=== PATIENT | female | born 1975 | race Caucasian/White ===

== ENCOUNTER 2019-07-03 17:22 | Observation (INO) ==
[2019-07-03 18:30] LABS: BASO# 0.06 X1000 (0.0-0.2); BASO% 0.6 % (0.0-0.8); EOS# 0.18 X1000 (0.0-0.7); EOS% 1.9 % (0.0-10.0); HEMATOCRIT 29.7 % (37.0-47.0); HEMOGLOBIN 9.9 g/dL (12.0-16.0); IMM GRAN# 0.02 X1000 (0.0-0.04); IMM GRAN% 0.2 % (0.0-0.5); LYMPH# 2.06 X1000 (1.2-3.4); LYMPH% 21.8 % (20.5-51.1); MCH 29.9 PG (27-31); MCHC 33.3 g/dL (33-37); MCV 89.7 FL (81-99); MONO# 0.58 X1000 (0.11-0.59); MONO% 6.1 % (1.7-9.3); MPV 9.8 FL (7.4-10.4); NEUT# 6.57 X1000 (1.4-6.5); NEUT% 69.4 % (42.2-75.2); PLT 201 X1000 (130-400); RBC 3.31 XMIL (4.2-5.4); WBC 9.47 X1000 (4.8-10.8)
[2019-07-03 18:55] LABS: ALB/GLOB RATIO 1.3; ALBUMIN 3.6 g/dL (3.5-5.0); CALCIUM 8.7 mg/dL (8.8-10.2); CREATININE 6.1 mg/dL (0.5-0.9); POTASSIUM 5.7 mmol/L (3.5-5.1); TOTAL BILIRUBIN 0.2 mg/dL (0.20-1.00); TOTAL PROTEIN 6.3 g/dL (6.3-8.3)
[2019-07-03 19:07] LABS: URINE SOURCE CLEAN CATCH
[2019-07-03 19:20] LABS: BILIRUBIN URINE NEGATIVE (NEGATIVE); BLOOD URINE SMALL (NEGATIVE); COLOR STRAW; GLUCOSE URINE NEGATIVE (NEGATIVE); KETONE URINE NEGATIVE (NEGATIVE); LEUKOCYTES URINE NEGATIVE (NEGATIVE); NITRITE URINE NEGATIVE (NEGATIVE); PROTEIN URINE 200 mg/dL (NEGATIVE); SP GRAVITY URINE 1.011; TURBIDITY URINE CLEAR (CLEAR); UROBILINOGEN URINE NORMAL (NORMAL)
[2019-07-03 19:21] LABS: UR EPITHELIAL CELLS <10 /HPF (<10); URINE BACTERIA NEGATIVE /HPF; URINE RBC <10 /HPF (<10); URINE WBC <10 /HPF (<10)
--- NOTE | 2019-07-03 19:25 | EKG Report ---
Test Performed on : 07/03/2019 6:22:07 PM Test Reason : abnormal labs Blood Pressure : / mmHG Vent. Rate : 078 BPM Atrial Rate : 078 BPM P-R Int : 154 ms QRS Dur : 080 ms QT Int : 408 ms P-R-T Axes : 064 026 031 degrees QTc Int : 465 ms Normal sinus rhythm. with sinus arrhythmia. Normal ECG No previous ECGs available Unconfirmed Result
[2019-07-03] MEDS ORDERED: TYLENOL PO ONE (19:43)
--- NOTE | 2019-07-03 20:35 | PROVIDER DOCUMENTATION ---
This chart was entered by Chyna Pete Scribe, acting as scribe for Indira Miles MD. HPI-General Adult - General Chief Complaint: Abnormal Lab[s] Stated Complaint: DR FATIMA REFERRED Time Seen by Provider: 07/03/19 19:00 Source: patient Allergies/Adverse Reactions: Patient Allergies Allergy/AdvReac Type Severity Reaction Status Date / Time ibuprofen Allergy SWELLING Verified 07/03/19 19:03 - History of Present Illness -Gen Adult Nature of Presenting Problems: Patient is a 43 y/o female presenting to the ED today c/o abnormal labs. Patient reports she went to [facility] today and was told her creatinine was critically elevated and was transferred to [facility] for admission. Due to miscommunication, patient was brought to the ER and Dr. Dodd requested admission through the ED. Patient is known to Dr. Dodd and patient states last week she was diagnosed with "kidney failure". Patient reports she initially went to the ER this morning due to headache. Patient reports history of hypertension but denies hyperlipidemia or diabetes. Patient reports she smokes approximately 1/2 pack daily and reports she has not used alcohol in 5 years. Patient denies all other signs/symptoms. Location of Pain/Injury: reports: none Associated Symptoms: reports: headaches Similar Symptoms Previously?: Yes Recently seen or treated by another doctor?: Yes (saw Dr. Dodd on 06/25) Review of Systems - Adult - REVIEW OF SYSTEMS - ADULT Constitutional: denies: chills, fever Eyes: reports: no symptoms reported Ears, Nose, Mouth & Throat: reports: no symptoms reported Cardiovascular: denies: chest pain Respiratory: denies: cough, shortness of breath Gastrointestinal: denies: abdominal pain, diarrhea, nausea, vomiting Genitourinary: denies: dysuria, frequency, flank pain Musculoskeletal: reports: no symptoms reported Integumentary: reports: no symptoms reported Neurological: reports: headache/migraines Psychiatric: reports: no symptoms reported Endocrine: reports: no symptoms reported Hematologic/Lymphatic: reports: no symptoms reported Allergic/Immunologic: reports: no symptoms reported All Other Systems: Reviewed and Negative Past History - Adult - PAST MEDICAL HISTORY-ADULT Review of Records: reports: Old Records Reviewed, Nursing Assessment Review, Medications Reviewed, Social history reviewed & non-contributory. Major Childhood Illnesses: reports: denies history Cardiovascular: reports: HTN Respiratory: reports: denies history Gastrointestinal: reports: denies history Obstetrical/Gynecological: reports: denies history Genitourinary: reports: other ("kidney failure") Musculoskeletal: reports: denies history Neurological: reports: denies history Psychiatric: reports: denies history Endocrine/Immune: reports: denies history Other Conditions: reports: denies history Physical Exam-General - PHYSICAL EXAM-ADULT Initial Vital Signs Reviewed: Yes - CONSTITUTIONAL General Appearance: appears well, alert, no apparent distress - EYES Eyes: PERRL/EOMI, pink conjunctivae - HEAD, EARS, NOSE, MOUTH & THROAT HENMT: normocephalic/atraumatic, moist mucous membranes - NECK Neck: full range of motion, normal inspection - RESPIRATORY Respiratory: lungs clear, normal breath sounds, no respiratory distress, no accessory muscle use - CARDIOVASCULAR Cardiovascular: regular rate, rhythm, no edema - GASTROINTESTINAL (ABDOMEN) Abdominal Exam: non tender, soft - LYMPHATIC Lymphatic: no adenopathy - MUSCULOSKELETAL Back Exam: normal inspection Extremity: normal range of motion, normal gait, normal inspection, no pedal edema - SKIN Integumentary: normal color, normal turgor, warm/dry - NEUROLOGIC Neurologic: grossly normal, no motor/sensory deficits - PSYCHIATRIC Psych/Mental Status: normal mood/affect, normal thought content, normal thought process Progress - PLAN OF CARE/RESULTS Progress/Plan/Lab Results: Vital Signs - 8 hr 07/03/19 17:25 Temperature 98.4 F Pulse Rate 96 H Respiratory Rate 16 Blood Pressure 203/115 O2 Sat by Pulse Oximetry 100 Laboratory Results - last 24 hr 07/03/19 07/03/19 07/03/19 17:59 17:59 18:50 WBC 9.47 RBC 3.31 L Hgb 9.9 L Hct 29.7 L MCV 89.7 MCH 29.9 MCHC 33.3 RDW Std Deviation 13.0 Plt Count 201 MPV 9.8 Immature Gran % (Auto) 0.2 Neut % (Auto) 69.4 Lymph % (Auto) 21.8 Butler % (Auto) 6.1 Eos % (Auto) 1.9 Baso % (Auto) 0.6 Immature Gran # (Auto) 0.02 Neut # (Auto) 6.57 H Lymph # (Auto) 2.06 Butler # (Auto) 0.58 Eos # (Auto) 0.18 Baso # (Auto) 0.06 Sodium 138 Potassium 5.7 H Chloride 107 Carbon Dioxide 13 L Anion Gap 18 BUN 72 H Creatinine 6.1 H Estimated GFR/1.73 m2 8 BUN/Creatinine Ratio 12 Glucose 96 Calculated Osmolality 297 Calcium 8.7 L Total Bilirubin 0.20 AST 15 ALT 12 Alkaline Phosphatase 53 Total Protein 6.3 Albumin 3.6 Globulin 2.7 Albumin/Globulin Ratio 1.3 Urine Source CLEAN CATCH Urine Color STRAW Urine Turbidity CLEAR Urine pH 6.0 Ur Specific [place] 1.011 Urine Protein 200 A Ur Glucose (Stick) NEGATIVE Ur Ketones (Stick) NEGATIVE Urine Blood SMALL A Urine Nitrite NEGATIVE Urine Bilirubin NEGATIVE Urobilinogen Dipstick NORMAL Urine Leukocytes NEGATIVE Urine WBC (Auto) <10 Urine RBC (Auto) <10 U Epithel Cells (Auto) <10 Urine Bacteria (Auto) NEGATIVE Orders Category Date Time Status CBC WITH ELECTRONIC DIFF [HEME] Stat Lab 07/03/19 17:59 Completed COMPREHENSIVE METABOLIC PANEL [CHEM] Stat Lab 07/03/19 17:59 Completed URINALYSIS [URINALYSIS] Stat Lab 07/03/19 18:50 Completed Generalized Adult Illness >60 Stat Oth 07/03/19 18:17 Ordered EKG [EKG] Stat Ther 07/03/19 18:18 Draft Result Diagrams: 07/03/19 17:59 07/03/19 17:59 - EKG 1 Time of EKG reading by physician:: 18:42 EKG Read and Signed by:: Luis Alberto Ruiz EKG Interpretation (*Must complete 3 of following elements*): Normal Rate: 78 Rhythm: Normal sinus rhythm with sinus arrhythmia [place]: normal QRS: normal VA Interval: normal ST Wave: normal - CONSULTS/PCP/HOSPITALIST Notification #1 *Consult/PCP/Hospitalist*: [place] Time Discussed: 20:35 Consult Disposition: Admit (accepts admission) Departure - Departure Date of Disposition Decision: 07/03/19 Time of Disposition Decision: 20:33 DIAGNOSIS: ESRD (end stage renal disease) Disposition: ADMITTED INPATIENT 09 Certified Medical Emergency: Emergent Condition: Stable Referrals and Follow-Ups: Jonathan Fatima MD [Primary Care Provider] - - Critical Care Note This patient required my direct & personal management of CC.: No Attestation - Physician/ JAYASHREE Attestation Patient care was provided by Advanced Practice Provider:: No The physician spent face to face time with patient:: Yes Advanced Practice Provider documentation review:: Supervising physician onsite and consulted in the evaluation and care of this patient. The physician did have a face to face encounter with the patient. This chart was documented by the indicated scribe, (Chyna Pete Scribe) and accurately reflects the services I performed and decisions made by me, Indira Miles MD, as attested by the provider's signature.
[2019-07-03] MEDS ORDERED: CATAPRES PO SCH (21:00)
[2019-07-03] MEDS ORDERED: ZOFRAN IV ONE (21:08)
[2019-07-03] MEDS ORDERED: FIORICET PO ONE (21:08)
[2019-07-03] MEDS ORDERED: NORVASC PO SCH (21:15)
[2019-07-03] MEDS ORDERED: APRESOLINE PO SCH (21:15)
--- NOTE | 2019-07-03 21:56 | Diag Imaging Result Doc PS360 ---
EXAM: CT HEAD/C-SPINE W/O CONTRAST 07/03/2019 HISTORY: WEBSTER,Suboccipital C7 pain/tenderness TECHNIQUE: This exam was performed using automated exposure control, adjustment of mA or kV according to patient size, and/or use of iterative reconstruction technique. COMMENT: There is no evidence of mass effect, bleed, or abnormal extra-axial fluid collection. There is persistence the metopic suture. The visualized paranasal sinuses are clear. Cervical spine: There is no evidence of fracture, subluxation, or prevertebral soft tissue swelling. The facets are aligned. There is a small pleural-based nodule posteriorly in the left apex. IMPRESSION: No evidence of acute disease. Electronically signed by Bora Rodriguez 07/03/2019 9:53 PM
--- NOTE | 2019-07-03 21:58 | Diag Imaging Result Doc PS360 ---
EXAM: CT THORACIC SPINE W/O CONTRAST 07/03/2019 HISTORY: T3-T4 pain/tenderness TECHNIQUE: This exam was performed using automated exposure control, adjustment of mA or kV according to patient size, and/or use of iterative reconstruction technique. COMMENT: There are some degenerative disc changes with anterior osteophyte formation. There is no evidence of fracture or subluxation. There is no evidence of spinal stenosis. There is some slight curvature of the midthoracic spine with convexity to the right. There is ankylosis between the fifth and sixth ribs medially and posteriorly on the right. This is presumably congenital. IMPRESSION: No evidence of acute bony abnormality. Electronically signed by Bora Rodriguez 07/03/2019 9:56 PM
--- NOTE | 2019-07-03 22:37 | HISTORY AND PHYSICAL ---
ADDENDUM: Ms. Jeni Lopez was transferred from [facility] to our facility. She was admitted to [facility] a week ago for what she says was a low blood level with hemoglobin estimated about 7 g. She was given 2 units of blood. She states that since she received the blood products she has had an intractable headache with photophobia and phonophobia and some nausea. She says these symptoms are reminiscent of her migraines in the past. She denies any fever or chills. Says the headache she has starts occipital and radiates down to her mid spine. No neck stiffness. She denies any rash. She went to the ER today because of the headache. Her blood pressure was 200/105, but we noticed that her creatinine which runs a baseline of 5 was 6.1, called Dr. Hernandez, and she was supposed to be directly transmitted to our service but somehow ended up in the ER. PHYSICAL EXAMINATION: VITAL SIGNS: Blood pressure was 201/111, heart rate 75, she is afebrile, breathing at 18 per minute. GENERAL: She is a middle-aged woman, not in acute distress. Mildly pale. She has point tenderness in the suboccipital area, C7 vertebra and T4 vertebra of the spine. NECK: Supple. No JVD. CARDIOVASCULAR EXAM: Normal. NEUROLOGICAL EXAM: Normal. EYES: Pupils are equal and reactive to light. Extraocular muscles intact. Essentially rest of her exam is unremarkable. ASSESSMENT: This patient definitely has hypertensive kidney disease with an acute deterioration of her kidney function. She denies any NSAID use at this point in time. She did have antibiotic use a few weeks ago and hard to say this is playing a role. She did have some diarrhea after using antibiotics and was subsequently stopped. We will check urine eosinophils to rule out acute interstitial nephritis, although this is unlikely. Complements will also be drawn to rule out an immune etiology, although this seems somewhat unlikely. Renal ultrasound, urinalysis, amongst other things to be drawn. We will consult Dr. Hernandez to see patient. Avoid nephrotoxic medications. Start patient on Norvasc and hydralazine for better blood pressure control. Headache could represent a migraine, and we will give something that is not nephrotoxic nor may increase the risk of vascular vasospasm. The patient states that she was told she has had prior CVAs in the past. Recommend low dose baby aspirin. Check for statins. Check A1c. LDH, phosphorus levels, intact PTH will also be drawn. Anemia workup should be drawn. I do suspect this patient may be approaching the need for dialysis and maybe will benefit from having vascular surgeon due venous mapping at this point in time in anticipation for graft placement. cc: Curtis Cochran MD MTDD
[2019-07-04] MEDS ORDERED: NICODERM PATCH TD PRN (00:29)
[2019-07-04 00:57] LABS: ALB/GLOB RATIO 1.4; ALBUMIN 3.6 g/dL (3.5-5.0); CALCIUM 8.7 mg/dL (8.8-10.2); CREATININE 5.8 mg/dL (0.5-0.9); POTASSIUM 5.6 mmol/L (3.5-5.1); TOTAL BILIRUBIN 0.16 mg/dL (0.20-1.00); TOTAL PROTEIN 6.2 g/dL (6.3-8.3)
[2019-07-04] MEDS ORDERED: ZOFRAN IV PRN (04:15)
[2019-07-04] MEDS ORDERED: TYLENOL PO PRN (04:15)
[2019-07-04] MEDS ORDERED: APRESOLINE IV ONE (04:16)
[2019-07-04 06:02] LABS: BASO# 0.05 X1000 (0.0-0.2); BASO% 0.6 % (0.0-0.8); EOS# 0.23 X1000 (0.0-0.7); EOS% 2.9 % (0.0-10.0); HEMATOCRIT 25.3 % (37.0-47.0); HEMOGLOBIN 8.5 g/dL (12.0-16.0); LYMPH# 2.18 X1000 (1.2-3.4); LYMPH% 27.2 % (20.5-51.1); MCH 30.2 PG (27-31); MCHC 33.6 g/dL (33-37); MONO# 0.52 X1000 (0.11-0.59); MONO% 6.5 % (1.7-9.3); MPV 9.9 FL (7.4-10.4); NEUT# 5.04 X1000 (1.4-6.5); NEUT% 62.8 % (42.2-75.2); PLT 180 X1000 (130-400); RBC 2.81 XMIL (4.2-5.4); RDW 12.9 % (11.5-14.5); WBC 8.02 X1000 (4.8-10.8)
[2019-07-04 06:18] LABS: HEMOGLOBIN A1C 4.9 % (4.8-6.0); PHOSPHORUS 7.2 mg/dL (2.7-4.5)
[2019-07-04 06:42] LABS: FERRITIN 353 ng/mL (13-150)
[2019-07-04 07:18] LABS: ALB/GLOB RATIO 1.5; ALBUMIN 3.2 g/dL (3.5-5.0); CALCIUM 8.2 mg/dL (8.8-10.2); CREATININE 5.8 mg/dL (0.5-0.9); POTASSIUM 4.7 mmol/L (3.5-5.1); TOTAL BILIRUBIN 0.15 mg/dL (0.20-1.00); TOTAL PROTEIN 5.3 g/dL (6.3-8.3)
[2019-07-04] MEDS: APRESOLINE PO SCH ×2 (08:48→14:58)
[2019-07-04] MEDS ORDERED: NORVASC PO SCH (09:00)
[2019-07-04] MEDS ORDERED: CATAPRES PO SCH (09:00)
--- NOTE | 2019-07-04 09:31 | HISTORY AND PHYSICAL ---
PRIMARY CARE PROVIDER: Dr. Alli Barkley in [place]. HOOKER OPERATOR: Dr. Hernandez. DATE AND TIME: 07/03/2019 at 2050. CHIEF COMPLAINT: Headache and decreased renal function. HISTORY OF PRESENT ILLNESS: Ms Jeni Lopez is a 43-year-old female with a past medical history most notable for chronic kidney disease, hypertension, CVA, migraines, anxiety, and anemia. The patient states that approximately a week and half ago that she was admitted at [facility] in [place], [place] for treatment of anemia. She did receive a blood transfusion at that time and was subsequently discharged home. The patient states that since she had her blood transfusion, that she has had a persistent headache. She states she actually has felt worse since her blood transfusion than she did before she received blood. The patient did present back to the ER at [facility] today for further evaluation of her persistent headache. It was noted at this time that she also did have worsening renal function. She reportedly states thinks that her creatinine was previously 5, has now increased to 6.1. From what I understand, Dr. Hernandez was notified of this and did, I believe, mean for the patient to be a direct admission, though she did present to the ER for further evaluation at [facility]. The patient has reported chills but denies any fever or body aches. She is reporting a persistent headache for which she describes the pain does start in her mid thoracic area, comes up through the center of her back up through her neck and up over the top of her head and out through her frontal forehead area. She is reporting that she has intermittently had episodes where she sees spots or stars. She did have some tenderness and pain upon palpation in the suboccipital area, C7 area and T3 and T4 area. The patient denies any numbness or tingling. She denies any chest pain, shortness of breath though has reported recent sinus congestion, drainage and pressure. She also reports an occasional productive cough with whitish colored sputum. She denies any abdominal pain though has reported some nausea. She denies any vomiting. The patient states she recently did receive a prescription for cefprozil for treatment of sinusitis, though was told by either Dr. Hernandez or her primary care physician to stop taking this. The patient states that she did have a few episodes while she was taking this medication though once the medication was stopped, the diarrhea did subside and she has not had any further episodes. She denies any hematemesis, hematochezia or melena. She also denies any menorrhagia. She denies any pain, numbness tingling or swelling in extremities. She also denies any dysuria or decreased urinary output. Laboratory results of note upon evaluation in the ER was a hemoglobin of 9.9 and hematocrit of 29.7, though she reportedly had a hemoglobin of 7 previously, potassium 5.7, BUN 72, creatinine 6.1 with GFR of 8. Urinalysis did show positive for protein and small amount of blood though was otherwise negative. There were no signs of infection noted. We did perform a CT head and C-spine without contrast, as well as CT thoracic spine without contrast given her above reported symptoms, there were no acute abnormalities noted. She has been placed inpatient admission for further treatment and evaluation. PAST MEDICAL HISTORY: 1. Hypertension. 2. A CVA was reported with some reported residual speech and memory changes. 3. Chronic kidney disease. 4. Migraines. 5. Anxiety. 6. Anemia. PAST SURGICAL HISTORY: 1. Appendectomy. 2. Cholecystectomy. 3. section x2. 4. Facial bone reconstruction surgery related to an injury as a child. SOCIAL HISTORY: The patient is a half a pack per day smoker. She has smoked since age 17. The patient denies any current alcohol or illicit drug use, though she states she has not drank for a few years, though did have a period for 6 months where she did abuse alcohol daily, though she states this was after her had , though she does not use alcohol currently. FAMILY HISTORY: Positive for hypertension and kidney disease. ALLERGIES: The patient reports an anaphylactic allergy to ibuprofen, stating that she did take ibuprofen and did have angioedema with reported syncope and did end up having to receive treatment at a hospital. HOME MEDICATIONS: 1. Clonidine 0.1 mg p.o. b.i.d. 2. Lisinopril 20 mg p.o. b.i.d. LABORATORY AND DIAGNOSTIC DATA: 1. White blood cell count is 9470, hemoglobin 9.9, hematocrit 29.7, platelet count is 201,000. Sodium 138, potassium 5.7, chloride 107, serum bicarb 13, BUN 72, creatinine 6.1, GFR of 8, glucose 96, calcium 8.7. Liver function tests are within normal limits. Urinalysis was obtained via clean catch, was positive for protein and a small amount of blood though was negative for glucose, ketones, nitrites, bilirubin, leukocytes, white blood cells, or bacteria. 2. EKG showed normal sinus rhythm with sinus arrhythmia at a rate of 78 with a QTc of [address] head and C-spine without contrast showed no acute disease. This is per Radiology. 4. CT thoracic spine without contrast showed no evidence of acute bony abnormality. This is per Radiology as well. PENDING DIAGNOSTIC STUDIES: At this time are complement C3, C4 and complement total, haptoglobin, hemoglobin A1c, PTH intact, phosphorus, a lipid profile, anemia profile, sedimentation rate, CRP, LDH, and urine eosinophils. PHYSICAL EXAMINATION: VITAL SIGNS: The patient's blood pressure was initially elevated at 203/115 with a MAP of 144, though after receiving blood pressure medications of clonidine, hydralazine, and Norvasc orally, blood pressure has improved to 162/78 at this time. Temperature is 98 degrees, heart rate 70, respirations 20, and oxygen saturation is 99% on room air. GENERAL: Ms. Lopez is a pleasant 43-year-old female. She was resting on the ER stretcher. She was in no acute distress. She was awake, alert, and able to answer questions appropriately. HEENT: Head is atraumatic, normocephalic. Pupils are equal, round, reactive to light, were 3 mm bilaterally and brisk. Oral mucosa was moist. Oropharynx was clear. NECK: Supple. Trachea midline. No carotid bruits noted upon auscultation bilaterally. CARDIOVASCULAR: Patient has S1, S2 present. No murmurs, gallops, rubs appreciated with a regular rate and rhythm. PULMONARY: Patient has symmetrical chest expansion bilaterally. Lung sounds are clear to auscultation in bilateral full dominguez. ABDOMEN: Soft, nontender, nondistended. Bowel sounds were present in all 4 quadrants, were normoactive. EXTREMITIES: No cyanosis or edema noted. Pulse, motor, and sensory were intact in all extremities. Radial and pedal pulses are 2+ bilaterally. INTEGUMENTARY: Patient's skin is pink, warm, and dry. NEUROLOGICAL: Patient is alert and oriented to person, place, time, and situation. She is able to move all extremities. There are no focal neurological deficits noted. She does have equal hand grasps and muscle strength bilaterally. She denies any numbness or tingling. There was no facial droop or speech disturbances present. ASSESSMENT AND PLAN: 1. Acute on chronic kidney disease. The patient has had a recent increase in her creatinine from what we believe was previously and is now 6.1. Given the patient's acute deterioration in her kidney function as well as her other symptoms, we are going to rule out possible acute interstitial nephritis, possible immune etiology as well as delayed transfusion reaction. This also could be secondary to medication. The patient does take lisinopril as well as did recently receive antibiotic of cefprozil. Diagnostic studies have been placed as above and some of these are still pending at this time. We will await these results and continue to follow. We will avoid nephrotoxic medications and renally dose medicines as necessary. We will do strict intake and output as well. We have placed a consult with Dr. Hernandez with Nephrology. We will await his evaluation and further recommendations for management. 2. Uncontrolled hypertension. We are holding her lisinopril at this time given her acute kidney injury. The patient reports that she is supposed to take her clonidine 3 times a day though sometimes only takes this twice a day due to this makes her drowsy. Given this, we are going to add on hydralazine 50 mg p.o. b.i.d. as well as Norvasc 5 mg p.o. b.i.d. and continue her clonidine 0.1 mg p.o. at bedtime. Hopefully this will provide her with some better blood pressure control. We will continue to monitor this closely. We can make adjustments or implement other antihypertensives as needed. 3. Headache. The patient does have a history of migraine headaches, though she states this headache is similar as her previous migraines though is different as well. She does have pain that reportedly comes from her mid thoracic back area, up her back, neck, and over the top of her head. She is reporting light and sound sensitivity as well as some nausea. We are going to provide some antiemetics as well as Fioricet for this. I do believe as well if we can improve her blood pressure, that her headache will likely improve also. 4. History of cerebrovascular accident. The patient reports that she has some residual speech and memory changes. Given this, we would like to place the patient on a low- dose aspirin though she has had previous anaphylaxis to ibuprofen. We will hold any NSAIDs at this time. We will go ahead and perform a lipid profile as well. As previously mentioned, CT of the head without contrast was negative for any acute intracranial abnormalities. 5. Anemia. This is likely secondary to her chronic kidney disease. We will order anemia profile. We will await those results and continue to follow. 6. Nicotine dependence. We will debt management counselor the patient on the importance of smoking cessation, especially given her hypertension and previous history of cerebrovascular accident. We have placed p.r.n. orders for a nicotine patch as needed. We will continue to debt management counselor her on smoking cessation throughout her admission and upon discharge. 7. Deep venous thrombosis prophylaxis will be provided sequential compression devices. The patient has been placed on the medical floor, telemetry. She will have vital signs q.4 hours. We will do strict intake and output. We are going to order a renal ultrasound in the morning as well. We also did place orders to have the patient's medical records obtained from her recent admission at [facility]. The patient will be on a renal diet at this time though she will be n.p.o. tomorrow night at midnight for a lipid profile the next morning. After her lipid profile is drawn, her regular renal diet can be continued. Further orders and recommendations pending hospital course, diagnostic studies, and physician evaluation. Dictated by SANTOS Bianchi for Curtis Cochran MD cc: MD Alli Oleary MD MTDD
--- NOTE | 2019-07-04 11:23 | Diag Imaging Result Doc PS360 ---
EXAM: US RENAL 2 (RETROPER) COMPLETE 07/04/2019 HISTORY: Acute on CKD TECHNIQUE: Renal ultrasound COMMENT: The urinary bladder is unremarkable. There is no evidence of hydronephrosis. There are bilateral renal cysts with one measuring 2.6 cm on the right and one measuring 1.7 cm on the left. Both kidneys are somewhat hyperechoic which would be consistent with medical renal disease. There are no previous studies available for comparison. The right kidney is 11 x 5.1 x 5.1 cm the left is 11.5 x 5 x 5.3 cm. IMPRESSION: No evidence of obstructive uropathy. Medical renal disease with possible acquired polycystic change. Electronically signed by Bora Rodriguez 07/04/2019 11:20 AM
[2019-07-04 11:44] VITALS: BP 169/87
--- NOTE | 2019-07-04 13:26 | PROGRESS NOTE ---
DATE: 07/04/2019 INTERVAL HISTORY: Patient's headache improved with Fioricet last night. Blood pressure control not ideal but somewhat improved. No acute events overnight. REVIEW OF SYSTEMS: Twelve point review of systems negative except as per interval history. LABS: WBC 8.0, hemoglobin 8.5, hematocrit 25.3, platelets 180,000. Sodium 142, potassium 4.7, BUN 72, creatinine 5.8, phosphorus 7.2, iron 47, TIBC 150, ferritin 353. IMAGING: Renal ultrasound with medical renal disease and acquired polycystic changes. No acute process. VITALS: T-max 98.5 degrees, pulse 76, respirations 18, blood pressure 169/87, O2 saturation 99% on room air next. PHYSICAL EXAMINATION: General: No acute distress. Vitals: As above. HEENT: Normocephalic, atraumatic. Moist mucous membranes. No cervical adenopathy. Cardiovascular: Regular rate and rhythm. No murmurs noted. Pulmonary: Clear to auscultation bilaterally. No wheezing, rales, or rhonchi. Abdomen: Soft, nontender, nondistended. Bowel sounds positive. Extremities: Peripheral pulses intact. No clubbing or cyanosis. Neurologic: Cranial nerves grossly intact. No focal deficits identified. Psychiatric: Normal mood and affect. Awake, alert, oriented x3. ASSESSMENT AND PLAN: 1. Likely LOVE on CKD 4 to 5 versus progression of chronic kidney disease. The patient transferred from [place] with kidney failure. Reportedly, creatinine baseline of 5. Creatinine was 6.1 on admission here, 5.8 this morning. Essentially no change, but mild hyperkalemia is improved. Does not appear grossly volume overloaded. No urgent need for dialysis but suspect she will end up needing initiation of dialysis in the immediate future. Nephrology consulted and we will see what they say. 2. Migraines, improved this morning. Continue Tylenol as needed and possible some Fioricet if that is ineffective. 3. Hypertension. Started on clonidine, hydralazine this morning. We will see what that does. Consider adding Norvasc if her blood pressure remains significantly elevated. 4. Hyperkalemia improved. Continue to monitor. 5. Disposition. Discharge once Nephrology is satisfied with her kidney function and electrolytes. [facility]
--- NOTE | 2019-07-04 18:08 | NEPHROLOGY CONSULTATION ---
DATE: 07/04/2019 REASON FOR CONSULTATION: Stage 5 chronic kidney disease. HISTORY OF PRESENT ILLNESS: Ms Lopez is a 43-year-old white female from the [facility]. She was hospitalized in [facility] then saw us in the office approximately 1 week ago. Creatinine was 5. She is not previously aware of kidney disease. She turned in her urine and blood on yesterday and her potassium was over 7 so she was transferred over to this facility. Potassium has been successfully treated. No anorexia, nausea, vomiting etc. PAST MEDICAL HISTORY: Hypertension and kidney disease. HOME MEDICATIONS: Lisinopril, clonidine. ALLERGIES: Ibuprofen. SOCIAL HISTORY: She works at [employer]. Ongoing smoker. HISTORY AND REVIEW OF SYSTEMS: Noncontributory. PHYSICAL EXAMINATION: Vital signs: Blood pressure 169/87, heart rate 76, respiration 18, afebrile. General: No acute distress. Skin is warm and dry. Somewhat pale. She does have a few ecchymoses. Conjunctivae are pink. Pupils are equal. Oropharynx is clear. Normal tongue. Normal teeth. Neck: Supple. Trachea is midline. No jugular venous distention. Heart: Regular. No rubs or gallops. Lungs: Equal. No crackles. Abdomen: Soft, nontender. Bowel sounds present. No organomegaly. Extremities: No edema, clubbing or cyanosis. IMPRESSION: Chronic kidney disease stage 5. Complicated by hyperkalemia and metabolic acidosis. Okay to discharge home from my perspective. We will see her in the office on Saturday to formulate an ongoing plan. Modality education and transplant referral. cc: Jonathan Hernandez MD
--- NOTE | 2019-07-04 18:10 | DISCHARGE SUMMARY ---
ADMISSION DATE: 07/03/2019 DISCHARGE DATE: 07/04/2019 CONSULTS: Nephrology, Dr. Hernandez. DISCHARGE DIAGNOSES: 1. Chronic kidney disease stage 5. 2. Hyperkalemia. 3. Migraine headaches. 4. Hypertension. HOSPITAL COURSE: The patient presented as a transfer from the [facility] because of worsening kidney failure and hyperkalemia. The patient's baseline creatinine was reportedly approximately 5. It was up to 6.1 on admission. Her potassium was mildly elevated at 5.6. Her creatinine remained roughly stable, coming down only to 5.8, but her hyperkalemia resolved rapidly with conservative therapy. The patient had significant hypertension on arrival with blood pressure 203/115, but improved with hydralazine and clonidine to 169/87. Norvasc was also added to attempt to get a little better blood pressure control. The case was discussed with Nephrology, who felt that she likely did need to start the process of getting ready for dialysis, but given the resolution of her hyperkalemia, relative stability of her creatinine, improvement in blood pressure with regular medications, and lack of any sign of significant volume overload, it was felt there was no urgent need for starting dialysis right now. She was discharged home to follow up with them. Nephrology plans to get her in predialysis classes and prepped for access placement. The patient's urine output remains reasonable. Ultrasound was obtained which showed medical renal disease but no sign of obstruction. Her other lab work was essentially unremarkable. She had stable anemia, slightly low calcium and slightly high phosphorus, which is not unexpected. Her iron studies were unremarkable. Her B12 and folate were within normal limits. Her PTH was little high at 175. The patient did complain of migraine headache on admission, but with control of her blood pressure and a dose of Fioricet, it resolved. DISCHARGE VITAL SIGNS: Temperature 98.5, pulse 76, respirations 18, blood pressure 169/87, O2 saturation 99% on room air. DISCHARGE MEDICATIONS: Hydralazine 50 mg p.o. t.i.d., clonidine 0.1 mg p.o. b.i.d., nicotine patch daily as needed, Norvasc 10 mg p.o. daily, Tylenol 650 mg p.o. every 6 hours. FOLLOWUP AND PLAN: Patient discharged home to follow up with PCP for blood pressure check, and Nephrology for dialysis access planning. TIME SPENT: Greater than 30 minutes spent arranging discharge and counseling patient.
== END 2019-07-04 16:33 | disposition home or self-care (01) ==
LOC: ED 17:22 → SUATTDRO 22:27 → INTOOBSV 22:27 → 1N 22:27
PROVIDERS: ATTEND Internal Medicine